=== PATIENT | female | born 1955 | race Caucasian/White ===

== ENCOUNTER 2019-03-06 08:36 | Emergency (ER) | payer BC ==
[2019-03-06 09:02] VITALS: BP 106/71
--- NOTE | 2019-03-06 09:10 | UC ---
Abdominal Pain Female HPI - HPI Summary HPI Summary: 63-year-old female who has a flare up of her diverticulitis. She is had surgery 25 years ago for that and it really hasn't had any problems until November of this year when she had a flareup. That was diagnosed again in the emergency room and she was placed on Augmentin which resolved the flare up in November. She states this is her typical diverticulitis flareup. She denies any fever or chills. This started approximately 3 days ago. - History of Current Complaint Chief Complaint: UCAbdominalPain Stated Complaint: LOWER ABD PAIN Time Seen by Provider: 03/06/19 09:03 Hx Obtained From: Patient ?: No Onset/Duration: Gradual Onset Timing: Constant Severity Initially: Mild Severity Currently: Moderate Pain Intensity: 6 Location: Discrete At: LLQ Radiates to: Other - No radiation Character: Aching, Cramping Aggravating Factor(s): Nothing Alleviating Factor(s): Nothing Associated Signs and Symptoms: Positive: Negative Allergies/Adverse Reactions: Allergies Allergy/AdvReac Type Severity Reaction Status Date / Time ciprofloxacin Allergy Swelling Verified 03/06/19 09:02 Of Face,Lips,& Throat PMH/Surg Hx/FS Hx/Imm Hx Previously Healthy: Yes GI/ History: Diverticulitis - Surgical History Surgical History: Yes Surgery Procedure, Year, and Place: 2X abdomen surgeries for diverticulitis ( Large Colon) and 10 years later small intestines for adhesions. - Family History Known Family History: Positive: Cardiac Disease, Diabetes - type 1 - Social History Lives: With Family Alcohol Use: None Substance Use Type: None Smoking Status (MU): Never Smoked Tobacco - Immunization History Most Recent Influenza Vaccination: Unsure for Season Most Recent Tetanus Shot: February 2015 Review of Systems All Other Systems Reviewed And Are Negative: Yes Gastrointestinal: Positive: Abdominal Pain, Other - Patient states this is her typical left lower quadrant abdominal pain with diverticulitis. Genitourinary: Positive: Negative Is Patient Immunocompromised?: No Physical Exam Triage Information Reviewed: Yes Appearance: Well-Appearing, No Pain Distress, Well-Nourished Vital Signs: Initial Vital Signs Temp 97.5 F 03/06/19 08:55 Pulse 65 03/06/19 08:55 Resp 16 03/06/19 08:55 BP 106/71 03/06/19 08:55 Pulse Ox 100 03/06/19 08:55 Vital Signs Reviewed: Yes Eyes: Positive: Conjunctiva Clear Respiratory: Positive: Chest non-tender, Lungs clear, Normal breath sounds, No respiratory distress Cardiovascular: Positive: RRR, No Murmur, Pulses Normal, Brisk Capillary Refill Abdomen Description: Positive: No Organomegaly, Soft, Guarding, Other: - Tenderness on palpation left lower quadrant.. Negative: CVA Tenderness (R), CVA Tenderness (L), Distended, Hepatomegaly, Splenomegaly Bowel Sounds: Positive: Present Musculoskeletal Exam: Normal Neurological Exam: Normal Psychological Exam: Normal Skin Exam: Normal Abd Pain Female Course/Dx - Course Course Of Treatment: The patient is comfortable here. She states this is her typical flareup of diverticulitis therefore I am going to treat this with Augmentin 875 mg by mouth twice a day 10 days. She was given information on diverticulitis diet and a follow-up in the emergency room if she has any worsening symptoms. The patient is agreeable to this plan of action. - Differential Dx/Diagnosis Provider Diagnosis: LLQ abdominal pain, History of diverticulitis Discharge ED - Sign-Out/Discharge Documenting (check all that apply): Patient Departure All imaging exams completed and their final reports reviewed: No Studies - Discharge Plan Condition: Good Disposition: HOME Prescriptions: Amoxicillin/Clavulanate TAB* [Augmentin TAB 875*] 875 mg PO BID 10 Days #20 tab Patient Education Materials: Diverticulitis (ED), Diverticulitis Diet (ED) Referrals: Maria Esther Booth MD [Primary Care Provider] - Additional Instructions: Increase fluids, take the Augmentin with food. If you have any worsening symptoms go to the emergency room for further treatment. - Billing Disposition and Condition Condition: GOOD Disposition: Home - Attestation Statements Provider Attestation: I was available for consult. This patient was seen by the [facility]. The patient was not presented to, seen by, or examined by me. -Zuleima
== END 2019-03-06 09:17 | disposition home or self-care (01) ==
LOC: UCCORT 08:36
DX: R10.32 Left lower quadrant pain (principal); K57.92 Diverticulitis of intestine, part unspecified, without perforation or abscess without bleeding; Z88.1 Allergy status to other antibiotic agents
CPT/HCPCS: 99212; G0463